=== PATIENT | female | born 1980 | race Caucasian/White ===

== ENCOUNTER 2019-09-05 09:31 | Emergency (ER) | payer MEDICAID ==
[~2019-09-05] VITALS: Ht 160 cm; Wt 96.6 kg
[2019-09-05 09:40] VITALS: Ht 160 cm; Wt 96.6 kg
[2019-09-05 10:48] LABS: CALCIUM 9.6 mg/dL (8.5-10.1); CARBON DIOXIDE 27.6 mmol/L (21-32); CHLORIDE SERUM 102 mmol/L (98-107); CREATININE SERUM 0.7 mg/dL (0.6-1.0); GFR1 > 60 mL/min; GLUCOSE SERUM 107 mg/dL (74-106); POTASSIUM SERUM 3.9 mmol/L (3.5-5.1); SODIUM SERUM 138 mmol/L (136-145)
[2019-09-05 10:53] LABS: ALKALINE PHOSPHATASE 96 U/L (46-116); ALT/SGPT 117 U/L (14-59); AMYLASE 47 U/L (25-115); AST/SGOT 172 U/L (15-37); BILIRUBIN TOTAL 2.01 mg/dL (0.20-1.00); LIPASE 92 IU/L (73-393); TOTAL PROTEIN, SERUM 7.8 g/dL (6.4-8.2)
[2019-09-05 10:57] LABS: BASOPHIL % 0.3 % (0-2); PLATELET COUNT 347 x10^3mcL (130-400); RED CELL DISTRIBUTION WIDTH 13.8 % (11.5-14.5)
[2019-09-05 11:50] VITALS: BP 126/52
== END 2019-09-05 11:50 | disposition home or self-care (01) ==
LOC: ED 09:31
PROVIDERS: Emergency Medicine
DX: K80.50 Calculus of bile duct without cholangitis or cholecystitis without obstruction (principal); Z90.89 Acquired absence of other organs
CPT/HCPCS: J1885; J2405; J3010; Q0092